=== PATIENT | male | born 1990 | race Caucasian/White ===

== ENCOUNTER 2016-07-29 17:21 | Emergency (ER) | payer OTHER ==
[2016-07-29] MEDS ORDERED: AZITHROMYCIN 250 MG TAB As Ordered ONE (19:25)
[2016-07-29] MEDS ORDERED: cefTRIAXone SOD 250 MG VIAL (J0696) As Ordered ONE (19:25)
--- NOTE | 2016-07-29 20:16 | EDDOCDS ---
Nurse's Notes [facility] Name: Sergey Bhagat Age: 26 yrs Sex: Male : 1990 Arrival Date: 07/29/2016 Time: 17:21 Bed TR8 Private MD: Lis [facility] [place] Diagnosis: Dysuria-with discharge Presentation: 07/29 17:26 Presenting complaint: Patient states: "I think I may have a UTI." C/o burning and ead itching with urination. Also reporting discharge. Onset of symptoms Friday. Adult Sepsis Screening: The patient does not have new or worsening altered mentation. Patient's respiratory rate is less than 22. Systolic blood pressure is greater than 100. Patient has a qSOFA score of 0- Negative Sepsis Screen. Suicide/Homicide risk assessment- the patient denies having any suicidal and/or homicidal ideations and does not present with any other emotional, behavioral or mental health complaints. Status: The patient is a dependent. Transition of care: patient was not received from another setting of care. 17:26 Acuity: TALHA Level 4 ead 17:26 Method Of Arrival: Walkin/Carried/Asstd ead Triage Assessment: 17:28 General: Appears in no apparent distress, comfortable, well nourished, well groomed, ead Behavior is appropriate for age, cooperative, pleasant. Pain: Denies pain. HIV screening NA for this visit Offered previously. : Reports burning with urination discharge from penis that is. Derm: Skin is normal. Historical: - Allergies: no known allergies; - Home Meds: 1. none - PMHx: none; - PSHx: none; - Social history: Smoking status: Patient states was never smoker of tobacco. No barriers to communication noted, The patient speaks fluent Occitan, Speaks appropriately for age. - Family history: Not pertinent. - : The pt / caregiver states he / she is not on anticoagulants. Home medication list is obtained from the patient. - Exposure Risk Screening:: None identified. Screenin:54 Screening information is obtained from the patient. Fall risk: No risks identified. rs3 Assistance ADL's: requires no assistance with activities of daily living. Abuse/DV Screen: The patient / caregiver reports he/she is: not in a situation that causes fear, pain or injury. Nutritional screening: No deficits noted. Advance Directives: Currently, there is no health care proxy. There is no active DNR order. home support is adequate. Assessment: 19:54 General: Appears in no apparent distress, Behavior is appropriate for age. Pain: rs3 Location: pelvis. Neurological: Level of Consciousness is awake, alert. Respiratory: Airway is patent Respiratory effort is even, unlabored, Respiratory pattern is regular, symmetrical. : Reports burning with urination. Derm: Skin is intact. 20:15 Reassessment: Patient appears in no apparent distress at this time. Patient denies pain rs3 at this time. Patient states feeling better. Patient states symptoms have improved. Vital Signs: 17:24 BP 147 / 78; Pulse 74; Resp 18 S; Temp 96.4(O); Pulse Ox 100% on R/A; Weight 86.18 kg gr2 (R); Height 6 ft. 1 in. (185.42 cm) (R); Pain 4/10; 19:05 BP 143 / 76; Pulse 75; Resp 18; Temp 99.2(TE); Pulse Ox 99% on R/A; Pain 0/10; ar3 19:57 BP 125 / 78; Pulse 74; Resp 18; Temp 98(TE); Pulse Ox 99% on R/A; rs3 17:24 Body Mass Index 25.07 (86.18 kg, 185.42 cm) gr2 Vitals: 17:24 Log In Time: July 29, 2016 at 17:24. gr2 ED Course: 17:23 Patient visited by Radha Villegas. gr2 17:23 JESSICA Hays is Private Physician. gr2 17:23 Patient moved to Waiting gr2 17:25 Patient visited by Radha Villegas. gr2 17:25 Patient moved to Pre RCE gr2 17:28 Triage Initiated ead 17:37 Patient moved to Triage 2 ead 17:52 [facility] cc10 17:52 Gil Valencia DO is Attending Physician. cc10 18:06 Patient visited by Darryn Conrad PA-C. cc10 18:06 Patient visited by Darryn Conrad PA-C. cc10 18:07 GC & Chlamydia Amplification Sent. jc4 18:07 UA Sent. jc4 18:10 Patient moved to TR2 jc4 19:02 Patient moved to PR1 / 25 ar3 19:05 Patient visited by Luz Marina Sheehan PCA. ar3 19:16 Lis [facility] [place] is Referral Physician. cc10 19:30 Urine Culture Sent. rs3 19:56 No IV's were initiated during this patient's visit. No procedures done that require rs3 assistance. 19:57 The patient / caregiver is instructed regarding the plan of care and ED course. rs3 20:03 Patient moved to TR8 rs3 20:12 [facility] Payment Agreement was scanned into [employer] and attached to record. zo Administered Medications: 19:30 Drug: azithromycin 1 grams [azithromycin 250 mg tablet (4 tabs)] Route: PO; rs3 19:30 Drug: cefTRIAXone 250 mg Route: IM; Site: right gluteus; rs3 Order Results: Lab Order: UA; SPEC'M 07/29/16 18:03 Test: APPEARANCE, URINE; Value: CLEAR; Range: CLEAR; Status: F Test: COLOR, URINE; Value: YELLOW; Range: YELLOW; Status: F Test: PH,URINE; Value: 6.0; Range: 5.0-9.0; Units: UNITS; Status: F Test: SPECIFIC GRAVITY URINE AUTO; Value: 1.023; Range: 1.002-1.035; Status: F Test: PROTEIN, URINE AUTO; Value: NEGATIVE; Range: NEGATIVE; Units: mg/dL; Status: F Test: GLUCOSE, URINE (UA) AUTO; Value: NEGATIVE; Range: NEGATIVE; Units: mg/dL; Status: F Test: KETONE, URINE AUTO; Value: NEGATIVE; Range: NEGATIVE; Units: mg/dL; Status: F Test: UROBILINOGEN, URINE AUTO; Value: 0.2; Range: 0.0-2.0; Units: mg/dL; Status: F Test: BILIRUBIN, URINE AUTO; Value: NEGATIVE; Range: NEGATIVE; Status: F Test: NITRITE, URINE AUTO; Value: NEGATIVE; Range: NEGATIVE; Status: F Test: LEUKOCYTE ESTERASE, URINE AUTO; Value: TRACE; Range: NEGATIVE; Abnormal: Above high normal; Status: F Test: BLOOD, URINE BLOOD; Value: NEGATIVE; Range: NEGATIVE; Status: F Test: WBC, URINE AUTO; Value: 13; Range: 0-3; Abnormal: Above high normal; Units: /HPF; Status: F Test: RBC, URINE AUTO; Value: 2; Range: 0-3; Units: /HPF; Status: F Test: BACTERIA, URINE AUTO; Value: NEGATIVE; Range: NEGATIVE; Status: F Test: SQUAMOUS EPITHELIAL CELL UR AU; Value: 0; Range: 0-6; Units: /HPF; Status: F Test: MUCUS, URINE; Value: SMALL; Range: NEGATIVE; Status: F Test: HYALINE CAST, URINE AUTO; Value: 0; Range: 0-1; Units: /LPF; Status: F Lab Order: GC & Chlamydia Amplification; SPEC'M 07/29/16 18:03 Test: CHLAMYDIA DNA AMPLIFICATION; Value: NEGATIVE; Range: NEGATIVE; Status: F Test: GC DNA AMPLIFICATION; Value: NEGATIVE; Range: NEGATIVE; Status: F Outcome: 19:16 Discharge ordered by Provider. cc10 19:56 Discharge Assessment: patient administered narcotics - no. The following High Risk rs3 Discharge criteria are identified: None. Discharged to home ambulatory, with family. Condition: stable. Discharge instructions given to patient, Instructed on discharge instructions, follow up and referral plans. medication usage, Demonstrated understanding of instructions, medications, Pt was receptive of discharge instructions/ teaching. Prescriptions given X 1. No special radiology studies were completed. Property :Personal belongings accompany Pt. 20:15 Patient left the ED. rs3 Signatures: Hair [place] Rosemary,RN RN rs3 Luz Marina Sheehan, AMBULATORY TECHNOLOGIST AMBULATORY TECHNOLOGIST ar3 Ya Schwartz RN RN [email or web address] Radha Villegas gr2 Nyasia Ellis RN RN Darryn Gonzáles, PA-C PA-C cc10 MTDD
--- NOTE | 2016-07-29 20:16 | EDDOCDS ---
Physician Documentation [facility] Name: Sergey Bhagat Age: 26 yrs Sex: Male : 1990 Arrival Date: 07/29/2016 Time: 17:21 Bed TR8 Private MD: JESSICA Hays Disposition: 07/29/16 19:16 Discharged to Home/Self Care. Impression: Dysuria - with discharge. - Condition is Stable. - Discharge Instructions: Dysuria. - Prescriptions for Metronidazole 500 mg Oral Tablet - take 1 tablet by ORAL route 2 times per day for 7 days; 14 tablet. - Medication Reconciliation, Local Pharmacy Hours form. - Follow up: Emergency Department; When: As needed. Follow up: JESSICA Hays; When: 1 week; Reason: Wound/Symptom Recheck, Recheck today's complaints, Worsening of conditions, Continuance of care. - Problem is an ongoing problem. - Symptoms are unchanged. Historical: - Allergies: no known allergies; - Home Meds: 1. none - PMHx: none; - PSHx: none; - Social history: Smoking status: Patient states was never smoker of tobacco. No barriers to communication noted, The patient speaks fluent Uzbek, Speaks appropriately for age. - Family history: Not pertinent. - : The pt / caregiver states he / she is not on anticoagulants. Home medication list is obtained from the patient. - Exposure Risk Screening:: None identified. Vital Signs: 07/29 17:24 BP 147 / 78; Pulse 74; Resp 18 S; Temp 96.4(O); Pulse Ox 100% on R/A; Weight 86.18 kg / gr2 189.99 lbs (R); Height 6 ft. 1 in. (185.42 cm) (R); Pain 4/10; 19:05 BP 143 / 76; Pulse 75; Resp 18; Temp 99.2(TE); Pulse Ox 99% on R/A; Pain 0/10; ar3 19:57 BP 125 / 78; Pulse 74; Resp 18; Temp 98(TE); Pulse Ox 99% on R/A; rs3 17:24 Body Mass Index 25.07 (86.18 kg, 185.42 cm) gr2 MDM: 18:00 UA Ordered. EDMS 18:00 GC & Chlamydia Amplification Ordered. EDMS 18:49 UA Reviewed. cc10 19:15 azithromycin 1 grams PO once ordered. cc10 19:15 cefTRIAXone 250 mg IM once; with lidocaine ordered. cc10 19:18 Urine Culture Ordered. EDMS 20:01 Financial registration complete. zo 20:12 [facility] Payment Agreement was scanned into [employer] and attached to record. zo Administered Medications: 19:30 Drug: azithromycin 1 grams [azithromycin 250 mg tablet (4 tabs)] Route: PO; rs3 19:30 Drug: cefTRIAXone 250 mg Route: IM; Site: right gluteus; rs3 Signatures: Dispatcher [employer] EDMS Hair Stock[place] Rosemary, RN RN rs3 Nyasia Ellis RN RN Darryn Gonzáles, PAStefan PAStefan cc10 The chart was reviewed and I authenticate all verbal orders and agree with the evaluation and treatment provided.Attachments: 20:12 [facility] Payment Agreement zo MTDD
--- NOTE | 2016-07-31 21:16 | EDDOCDS ---
Nurse's Notes [facility] Name: Sergey Bhagat Age: 26 yrs Sex: Male : 1990 Arrival Date: 07/29/2016 Time: 17:21 Bed TR8 Private MD: Lis [facility] Diagnosis: Dysuria-with discharge Presentation: 07/29 17:26 Presenting complaint: Patient states: "I think I may have a UTI." C/o burning and ead itching with urination. Also reporting discharge. Onset of symptoms Friday. Adult Sepsis Screening: The patient does not have new or worsening altered mentation. Patient's respiratory rate is less than 22. Systolic blood pressure is greater than 100. Patient has a qSOFA score of 0- Negative Sepsis Screen. Suicide/Homicide risk assessment- the patient denies having any suicidal and/or homicidal ideations and does not present with any other emotional, behavioral or mental health complaints. Status: The patient is a dependent. Transition of care: patient was not received from another setting of care. 17:26 Acuity: TALHA Level 4 ead 17:26 Method Of Arrival: Walkin/Carried/Asstd ead Triage Assessment: 17:28 General: Appears in no apparent distress, comfortable, well nourished, well groomed, ead Behavior is appropriate for age, cooperative, pleasant. Pain: Denies pain. HIV screening NA for this visit Offered previously. : Reports burning with urination discharge from penis that is. Derm: Skin is normal. Historical: - Allergies: no known allergies; - Home Meds: 1. none - PMHx: none; - PSHx: none; - Social history: Smoking status: Patient states was never smoker of tobacco. No barriers to communication noted, The patient speaks fluent Sami, Speaks appropriately for age. - Family history: Not pertinent. - : The pt / caregiver states he / she is not on anticoagulants. Home medication list is obtained from the patient. - Exposure Risk Screening:: None identified. Screenin:54 Screening information is obtained from the patient. Fall risk: No risks identified. rs3 Assistance ADL's: requires no assistance with activities of daily living. Abuse/DV Screen: The patient / caregiver reports he/she is: not in a situation that causes fear, pain or injury. Nutritional screening: No deficits noted. Advance Directives: Currently, there is no health care proxy. There is no active DNR order. home support is adequate. Assessment: 19:54 General: Appears in no apparent distress, Behavior is appropriate for age. Pain: rs3 Location: pelvis. Neurological: Level of Consciousness is awake, alert. Respiratory: Airway is patent Respiratory effort is even, unlabored, Respiratory pattern is regular, symmetrical. : Reports burning with urination. Derm: Skin is intact. 20:15 Reassessment: Patient appears in no apparent distress at this time. Patient denies pain rs3 at this time. Patient states feeling better. Patient states symptoms have improved. Vital Signs: 17:24 BP 147 / 78; Pulse 74; Resp 18 S; Temp 96.4(O); Pulse Ox 100% on R/A; Weight 86.18 kg gr2 (R); Height 6 ft. 1 in. (185.42 cm) (R); Pain 4/10; 19:05 BP 143 / 76; Pulse 75; Resp 18; Temp 99.2(TE); Pulse Ox 99% on R/A; Pain 0/10; ar3 19:57 BP 125 / 78; Pulse 74; Resp 18; Temp 98(TE); Pulse Ox 99% on R/A; rs3 17:24 Body Mass Index 25.07 (86.18 kg, 185.42 cm) gr2 Vitals: 17:24 Log In Time: July 29, 2016 at 17:24. gr2 ED Course: 17:23 Patient visited by Radha Villegas. gr2 17:23 JESSICA Hays is Private Physician. gr2 17:23 Patient moved to Waiting gr2 17:25 Patient visited by Radha Villegas. gr2 17:25 Patient moved to Pre RCE gr2 17:28 Triage Initiated ead 17:37 Patient moved to Triage 2 ead 17:52 [facility] cc[facility] 17:52 Gil Valencia DO is Attending Physician. cc10 18:06 Patient visited by Darryn Conrad PA-C. cc10 18:06 Patient visited by Darryn Conrad PA-C. cc10 18:07 GC & Chlamydia Amplification Sent. jc4 18:07 UA Sent. jc4 18:10 Patient moved to TR2 jc4 19:02 Patient moved to PR1 / 25 ar3 19:05 Patient visited by Luz Marina Sheehan PCA. ar3 19:16 Lis [facility] is Referral Physician. cc10 19:30 Urine Culture Sent. rs3 19:56 No IV's were initiated during this patient's visit. No procedures done that require rs3 assistance. 19:57 The patient / caregiver is instructed regarding the plan of care and ED course. rs3 20:03 Patient moved to TR8 rs3 20:12 [facility] Payment Agreement was scanned into [employer] and attached to record. zo 07/30 01:35 T-Sheet-- Draft Copy was scanned into [employer] and attached to record. hs2 Administered Medications: 07/29 19:30 Drug: azithromycin 1 grams [azithromycin 250 mg tablet (4 tabs)] Route: PO; rs3 19:30 Drug: cefTRIAXone 250 mg Route: IM; Site: right gluteus; rs3 Order Results: Lab Order: UA; SPEC'M 07/29/16 18:03 Test: APPEARANCE, URINE; Value: CLEAR; Range: CLEAR; Status: F Test: COLOR, URINE; Value: YELLOW; Range: YELLOW; Status: F Test: PH,URINE; Value: 6.0; Range: 5.0-9.0; Units: UNITS; Status: F Test: SPECIFIC GRAVITY URINE AUTO; Value: 1.023; Range: 1.002-1.035; Status: F Test: PROTEIN, URINE AUTO; Value: NEGATIVE; Range: NEGATIVE; Units: mg/dL; Status: F Test: GLUCOSE, URINE (UA) AUTO; Value: NEGATIVE; Range: NEGATIVE; Units: mg/dL; Status: F Test: KETONE, URINE AUTO; Value: NEGATIVE; Range: NEGATIVE; Units: mg/dL; Status: F Test: UROBILINOGEN, URINE AUTO; Value: 0.2; Range: 0.0-2.0; Units: mg/dL; Status: F Test: BILIRUBIN, URINE AUTO; Value: NEGATIVE; Range: NEGATIVE; Status: F Test: NITRITE, URINE AUTO; Value: NEGATIVE; Range: NEGATIVE; Status: F Test: LEUKOCYTE ESTERASE, URINE AUTO; Value: TRACE; Range: NEGATIVE; Abnormal: Above high normal; Status: F Test: BLOOD, URINE BLOOD; Value: NEGATIVE; Range: NEGATIVE; Status: F Test: WBC, URINE AUTO; Value: 13; Range: 0-3; Abnormal: Above high normal; Units: /HPF; Status: F Test: RBC, URINE AUTO; Value: 2; Range: 0-3; Units: /HPF; Status: F Test: BACTERIA, URINE AUTO; Value: NEGATIVE; Range: NEGATIVE; Status: F Test: SQUAMOUS EPITHELIAL CELL UR AU; Value: 0; Range: 0-6; Units: /HPF; Status: F Test: MUCUS, URINE; Value: SMALL; Range: NEGATIVE; Status: F Test: HYALINE CAST, URINE AUTO; Value: 0; Range: 0-1; Units: /LPF; Status: F Lab Order: GC & Chlamydia Amplification; SPEC'M 07/29/16 18:03 Test: CHLAMYDIA DNA AMPLIFICATION; Value: NEGATIVE; Range: NEGATIVE; Status: F Test: GC DNA AMPLIFICATION; Value: NEGATIVE; Range: NEGATIVE; Status: F Lab Order: Urine Culture; SPEC'M 07/29/16 18:03 Test: URINE CULTURE; Value: URINE CULTURE RESULT NO GROWTH; Status: F Outcome: 19:16 Discharge ordered by Provider. cc10 19:56 Discharge Assessment: patient administered narcotics - no. The following High Risk rs3 Discharge criteria are identified: None. Discharged to home ambulatory, with family. Condition: stable. Discharge instructions given to patient, Instructed on discharge instructions, follow up and referral plans. medication usage, Demonstrated understanding of instructions, medications, Pt was receptive of discharge instructions/ teaching. Prescriptions given X 1. No special radiology studies were completed. Property :Personal belongings accompany Pt. 20:15 Patient left the ED. rs3 Signatures: Hair [place] Rosemary,RN RN rs3 Luz Marina Sheehan, GYMNASTIC TEACHER GYMNASTIC TEACHER ar3 Ya Schwartz RN RN jc4 Radha Vilelgas gr2 Nyasia Ellis,RN RN Darryn Gonzáles PA-C PAMaritaC cc10 Ophelia Menchaca, Reg Reg hs2 Chart Complete MTDD
--- NOTE | 2016-07-31 21:16 | EDDOCDS ---
Physician Documentation [facility] Name: Sergey Bhagat Age: 26 yrs Sex: Male : 1990 Arrival Date: 07/29/2016 Time: 17:21 Bed TR8 Private MD: JESSICA Hays Disposition: 07/29/16 19:16 Discharged to Home/Self Care. Impression: Dysuria - with discharge. - Condition is Stable. - Discharge Instructions: Dysuria. - Prescriptions for Metronidazole 500 mg Oral Tablet - take 1 tablet by ORAL route 2 times per day for 7 days; 14 tablet. - Medication Reconciliation, Local Pharmacy Hours form. - Follow up: Emergency Department; When: As needed. Follow up: JESSICA Hays; When: 1 week; Reason: Wound/Symptom Recheck, Recheck today's complaints, Worsening of conditions, Continuance of care. - Problem is an ongoing problem. - Symptoms are unchanged. Historical: - Allergies: no known allergies; - Home Meds: 1. none - PMHx: none; - PSHx: none; - Social history: Smoking status: Patient states was never smoker of tobacco. No barriers to communication noted, The patient speaks fluent Setswana, Speaks appropriately for age. - Family history: Not pertinent. - : The pt / caregiver states he / she is not on anticoagulants. Home medication list is obtained from the patient. - Exposure Risk Screening:: None identified. Vital Signs: 07/29 17:24 BP 147 / 78; Pulse 74; Resp 18 S; Temp 96.4(O); Pulse Ox 100% on R/A; Weight 86.18 kg / gr2 189.99 lbs (R); Height 6 ft. 1 in. (185.42 cm) (R); Pain 4/10; 19:05 BP 143 / 76; Pulse 75; Resp 18; Temp 99.2(TE); Pulse Ox 99% on R/A; Pain 0/10; ar3 19:57 BP 125 / 78; Pulse 74; Resp 18; Temp 98(TE); Pulse Ox 99% on R/A; rs3 17:24 Body Mass Index 25.07 (86.18 kg, 185.42 cm) gr2 MDM: 18:00 UA Ordered. EDMS 18:00 GC & Chlamydia Amplification Ordered. EDMS 18:49 UA Reviewed. cc10 19:15 azithromycin 1 grams PO once ordered. cc10 19:15 cefTRIAXone 250 mg IM once; with lidocaine ordered. cc10 19:18 Urine Culture Ordered. EDMS 20:01 Financial registration complete. zo 20:12 [facility] Payment Agreement was scanned into [employer] and attached to record. zo 07/30 01:35 T-Sheet-- Draft Copy was scanned into [employer] and attached to record. hs2 Administered Medications: 07/29 19:30 Drug: azithromycin 1 grams [azithromycin 250 mg tablet (4 tabs)] Route: PO; rs3 19:30 Drug: cefTRIAXone 250 mg Route: IM; Site: right gluteus; rs3 Signatures: Dispatcher [employer] EDHair Dickens Rosemary, RN RN rs3 Nyasia Ellis RN RN Darryn Gonzáles, RADHA PA-Dio cc10 Ophelia Menchaca, Reg Reg hs2 The chart was reviewed and I authenticate all verbal orders and agree with the evaluation and treatment provided.Attachments: 20:12 [facility] Payment Agreement zo 07/30 01:35 T-Sheet-- Draft Copy hs2 Chart Complete MTDD
--- NOTE | 2016-07-31 21:16 | EDDOCDS ---
Physician Documentation [facility] Name: Sergey Bhagat Age: 26 yrs Sex: Male : 1990 Arrival Date: 07/29/2016 Time: 17:21 Bed TR8 Private MD: JESSICA Hays Disposition: 07/29/16 19:16 Discharged to Home/Self Care. Impression: Dysuria - with discharge. - Condition is Stable. - Discharge Instructions: Dysuria. - Prescriptions for Metronidazole 500 mg Oral Tablet - take 1 tablet by ORAL route 2 times per day for 7 days; 14 tablet. - Medication Reconciliation, Local Pharmacy Hours form. - Follow up: Emergency Department; When: As needed. Follow up: JESSICA Hays; When: 1 week; Reason: Wound/Symptom Recheck, Recheck today's complaints, Worsening of conditions, Continuance of care. - Problem is an ongoing problem. - Symptoms are unchanged. Historical: - Allergies: no known allergies; - Home Meds: 1. none - PMHx: none; - PSHx: none; - Social history: Smoking status: Patient states was never smoker of tobacco. No barriers to communication noted, The patient speaks fluent Lao, Speaks appropriately for age. - Family history: Not pertinent. - : The pt / caregiver states he / she is not on anticoagulants. Home medication list is obtained from the patient. - Exposure Risk Screening:: None identified. Vital Signs: 07/29 17:24 BP 147 / 78; Pulse 74; Resp 18 S; Temp 96.4(O); Pulse Ox 100% on R/A; Weight 86.18 kg / gr2 189.99 lbs (R); Height 6 ft. 1 in. (185.42 cm) (R); Pain 4/10; 19:05 BP 143 / 76; Pulse 75; Resp 18; Temp 99.2(TE); Pulse Ox 99% on R/A; Pain 0/10; ar3 19:57 BP 125 / 78; Pulse 74; Resp 18; Temp 98(TE); Pulse Ox 99% on R/A; rs3 17:24 Body Mass Index 25.07 (86.18 kg, 185.42 cm) gr2 MDM: 18:00 UA Ordered. EDMS 18:00 GC & Chlamydia Amplification Ordered. EDMS 18:49 UA Reviewed. cc10 19:15 azithromycin 1 grams PO once ordered. cc10 19:15 cefTRIAXone 250 mg IM once; with lidocaine ordered. cc10 19:18 Urine Culture Ordered. EDMS 20:01 Financial registration complete. zo 20:12 [facility] Payment Agreement was scanned into [employer] and attached to record. zo 07/30 01:35 T-Sheet-- Draft Copy was scanned into [employer] and attached to record. hs2 Administered Medications: 07/29 19:30 Drug: azithromycin 1 grams [azithromycin 250 mg tablet (4 tabs)] Route: PO; rs3 19:30 Drug: cefTRIAXone 250 mg Route: IM; Site: right gluteus; rs3 Signatures: Dispatcher [employer] EDHair Dickens Rosemary, RN RN rs3 Nyasia Ellis RN RN Darryn Gonzáles, RADHA PA-Dio cc10 Ophelia Menchaca, Reg Reg hs2 The chart was reviewed and I authenticate all verbal orders and agree with the evaluation and treatment provided.Attachments: 20:12 [facility] Payment Agreement zo 07/30 01:35 T-Sheet-- Draft Copy hs2 Chart Complete MTDD
== END 2016-07-29 20:15 | disposition home or self-care (01) ==
LOC: M ED 17:21
DX: R30.0 Dysuria (principal)
CPT/HCPCS: 81001; 87086; 87491; 87591; 96372; 99283; J0696